=== PATIENT | female | born 1960 ===

== ENCOUNTER → 2018-08-17 | Outpatient (CLI) | payer OTHER ==
[2018-08-17 11:47] LABS: PLATELET COUNT, AUTOMATED 260 K/uL (150-450)
[2018-08-17 12:10] LABS: LDL CHOLESTEROL 86 mg/dl
== END ==
LOC: LAB 11:28
PROVIDERS: ATTEND Emergency Medicine
DX: F41.9 Anxiety disorder, unspecified (principal)
CPT/HCPCS: 36415; 82040; 82247; 82310; 82374; 82435; 82465; 82565; 82947; 83718; 84075; 84132; 84155; 84295; 84443; 84450; 84460; 84478; 84520; 85025

== ENCOUNTER → 2018-09-15 | Outpatient (CLI) | payer OTHER ==
--- NOTE | 2018-10-02 14:55 | RADIOLOGY IMAGING REPORT ---
FACILITY: [facility] - [place] PATIENT NAME: SEBASTIAN MORGAN : [id number] MR: [id number] V: [id number] EXAM DATE: [id number] ORDERING PHYSICIAN: COOPER PACHECO TECHNOLOGIST: Nya Wei This report includes an Addendum and supersedes previous reports for this exam. PROCEDURE:BILATERAL DIGITAL SCREENING MAMMOGRAM WITH CAD ASSISTED INTERPRETATION & 3D TOMOSYNTHESIS COMPARISON:None. Previous outside mammograms have not been received despite 2 requests. If the previous outside mammograms do become available an addendum can be dictated at that time. INDICATIONS:SCREENING FINDINGS: The breasts are heterogeneously dense which can obscure small masses. There is a focal asymmetry in the lateral portion of the Right breast on the Right CC view junction of the anterior & middle thirds. This asymmetry appears to be in the inferior portion of the Right breast on the Right MLO view. Spot compression view recommended & possible Right breast Ultrasound depending on the additional imaging findings. DIAGNOSTIC CATEGORY 0--INCOMPLETE: NEED ADDITIONAL IMAGING EVALUATION. RECOMMENDATIONS: ADDITIONAL MAMMOGRAPHIC VIEWS REQUIRED: RIGHT BREAST. ULTRASOUND: RIGHT BREAST. IMPRESSION: BIRADS 0: Incomplete, need additional imaging evaluation. Additional views of the Right breast & possible Right breast Ultrasound recommended depending on the additional imaging findings. Dictated by: Yudi Saunders M.D. on 10/02/2018 at 14:42 Transcribed by: MARKOS on 10/02/2018 at 14:51 Approved by: Yudi Saunders M.D. on 10/02/2018 at 14:54 [facility] ADDENDUM: FINDINGS: The previous outside mammograms have just now become available. These prior mammograms are dated 08/01/17, 07/26/16, 07/06/15, 07/05/14, 04/06/13, 03/20/12, 02/07/11, 02/07/10, 03/28/09,03/25/08. The breasts are heterogeneously dense which can obscure small masses. The focal asymmetry in the lateral inferior portion of the Right breast described in the previous dictation was present on the prior mammograms and appears relatively stable. DIAGNOSTIC CATEGORY 2--BENIGN FINDING. RECOMMENDATIONS: ROUTINE MAMMOGRAM AND CLINICAL EVALUATION. IMPRESSION: BIRADS 2: Benign finding. No significant abnormality is seen. Dictated by: Yudi Saunders M.D. on 10/05/2018 at 13:08 Transcribed by: BHAVIN on 10/05/2018 at 13:20 Approved by: Yudi Saunders M.D. on 10/05/2018 at 15:05 [facility]
== END ==
LOC: MAMO 00:45
PROVIDERS: ATTEND Emergency Medicine
DX: R92.2 Inconclusive mammogram (principal)
CPT/HCPCS: 77063; 77067